=== PATIENT | female | born 1995 ===

== ENCOUNTER 2024-06-23 11:00 | Day surgery (SDC) | payer OTHER, SELFPAY | END 2024-06-23 11:01 | disposition home or self-care (01) | LOC: GI 11:00 | PROVIDERS: ATTENDING PHYSICIAN Internal Medicine Gastroenterology | DX: K20.0 Eosinophilic esophagitis (principal); Z53.9 Procedure and treatment not carried out, unspecified reason | CPT/HCPCS: G0378 ==

== ENCOUNTER 2024-09-14 06:22 | Day surgery (SDC) | payer OTHER, SELFPAY | END 2024-09-14 15:42 | disposition home or self-care (01) | LOC: GI 06:22 | PROVIDERS: ATTENDING PHYSICIAN Internal Medicine Gastroenterology | DX: K20.0 Eosinophilic esophagitis (principal); K44.9 Diaphragmatic hernia without obstruction or gangrene | CPT/HCPCS: 43239; 88305 ==

== ENCOUNTER 2025-04-16 06:29 | Day surgery (SDC) | payer OTHER, SELFPAY | END 2025-04-16 12:36 | disposition home or self-care (01) | LOC: GI 06:29 | PROVIDERS: ATTENDING PHYSICIAN Internal Medicine Gastroenterology | DX: K31.7 Polyp of stomach and duodenum (principal); K31.89 Other diseases of stomach and duodenum; R10.13 Epigastric pain | CPT/HCPCS: 43239; 88305; 88342 ==